=== PATIENT | male | born 1955 | race Caucasian/White ===

== ENCOUNTER 2024-03-11 08:20 | Emergency (ER) | payer MEDICARE ==
[2024-03-11 09:44] LABS: HEMATOCRIT 36.3 % (42.0-52.0); HEMOGLOBIN 12.5 g/dl (13.5-17.5); MEAN CORPUSCULAR HEMOGLOBIN 32.6 pg (27.0-33.0); MEAN CORPUSCULAR HGB CONC 34.4 g/dl (32.0-36.5); MEAN CORPUSCULAR VOLUME 94.5 fl (80.0-96.0); PLATELET COUNT, AUTOMATED 326 10^3/uL (150-450); RED BLOOD COUNT 3.84 10^6/uL (4.30-6.10); WHITE BLOOD COUNT 9.6 10^3/uL (4.0-10.0)
[2024-03-11 10:03] LABS: ETHYL ALCOHOL (ETHANOL) < 0.003 % (0.000-0.010)
[2024-03-11 10:05] LABS: ALBUMIN 3.9 G/DL (3.2-5.2); ALKALINE PHOSPHATASE 45 U/L (46-116); ALT/SGPT 24 U/L (7.0-40); AST/SGOT 19 U/L (<34); BILIRUBIN,DIRECT 0.1 MG/DL (<0.4); BILIRUBIN,TOTAL 0.3 MG/DL (0.3-1.2); BLOOD UREA NITROGEN 14 MG/DL (9-23); CALCIUM LEVEL 9.6 MG/DL (8.3-10.6); CARBON DIOXIDE LEVEL 26 MMOL/L (20-31); CHLORIDE LEVEL 110 MMOL/L (98-107); CREATININE FOR GFR 0.72 MG/DL (0.70-1.30); GLOMERULAR FILTRATION RATE > 60.0 (>42); GLUCOSE, FASTING 92 MG/DL (74-106); POTASSIUM SERUM 4.2 MMOL/L (3.5-5.1); SALICYLATE LEVEL < 3.0 MG/DL (<30); SODIUM LEVEL 140 MMOL/L (136-145); TOTAL PROTEIN 6.5 G/DL (5.7-8.2)
[2024-03-11 10:06] LABS: THYROID STIMULATING HORMONE 1.083 uIU/ML (0.55-4.78)
[2024-03-11 10:15] LABS: AMPHETAMINES LEVEL URINE NEGATIVE (NEGATIVE); BARBITURATES URINE NEGATIVE (NEGATIVE); BENZODIAZEPINES URINE NEGATIVE (NEGATIVE); COCAINE METABOLITE URINE NEGATIVE (NEGATIVE); METHADONE URINE NEGATIVE (NEGATIVE); OPIATES URINE NEGATIVE (NEGATIVE)
[2024-03-11 10:16] LABS: PHENCYCLIDINE URINE NEGATIVE (NEGATIVE)
[2024-03-11 10:26] LABS: CANNABINOIDS URINE POSITIVE (NEGATIVE)
[2024-03-11] MEDS ORDERED: METO1TAB7 PO (12:16)
[2024-03-11] MEDS ORDERED: HOME MED LIST COMPLETE! XX SCH (12:20)
[2024-03-11] MEDS: METOPROLOL SUCC (TopROL XL) 50MG **XL** TAB PO SCH (16:20)
[2024-03-11] MEDS: NICOTINE 21MG/24HR 1 EA TRANSDERMAL TD ONE (21:39)
[2024-03-13] MEDS: NICOTINE 21MG/24HR 1 EA TRANSDERMAL TD ONE (00:47)
[2024-03-13 08:12] VITALS: BP 190/91
[2024-03-13 10:43] VITALS: BP 150/68; TEMP 97.9; O2SAT 99
== END 2024-03-13 11:32 ==
LOC: M ED 08:20
DX: F31.9 Bipolar disorder, unspecified (principal); F12.10 Cannabis abuse, uncomplicated; R94.31 Abnormal electrocardiogram [ECG] [EKG]; Z88.8 Allergy status to other drugs, medicaments and biological substances